=== PATIENT | female | born 1995 | race Caucasian/White ===

== ENCOUNTER 2023-11-17 09:06 | Emergency (ER) | payer OTHER, SELFPAY ==
[2023-11-17 09:19] VITALS: BP 152/94; PULSE 84; RESP 16; TEMP 36.8; O2SAT 100
--- NOTE | 2023-11-17 09:22 | ED.URI ---
HPI - URI/Sore Throat General Chief Complaint: Upper Respiratory Infection Stated Complaint: Sinus/Cough Source: patient and RN notes reviewed Mode of arrival: ambulatory Limitations: no limitations History of Present Illness HPI Narrative: 28-year-old female presented for persistent cough and nasal congestion for over 1 week. She states she was exposed to covid a few days prior to symptom onset. Pt quarantined for covid without testing positive, but states her sister had the same symptoms and tested positive. Endorses cough is getting worse, productive of green sputum, and feels like it is hard to take a full deep breath at times. Denies n/v/d/f/c. Taking Benadryl and Eastern remedies from mother in law. MD elicited complaint: cough Related Data Allergies Allergy/AdvReac Type Severity Reaction Status Date / Time No Known Allergies Allergy Verified 11/17/23 09:10 Review of Systems Review of Systems: CONSTITUTIONAL: Denies malaise, chills, sweats, fever EYES: Denies visual changes, redness, or discharge ENT: Reports rhinorrhea, congestion, denies otalgia, sore throat CARDIOVASCULAR: Denies chest pain, palpitations, edema RESPIRATORY: Reports cough, post nasal drainage. Denies dyspnea GASTROINTESTINAL: Denies abdominal pain, nausea, vomiting, diarrhea SKIN: Denies rash or itching MUSCULOSKELETAL: denies myalgia NEUROLOGIC: Denies headache [facility] Past Medical History Medical History (Updated 11/17/23 @ 09:36 by Kyleigh Soriano, ROSITA) No pertinent past medical history Exam Narrative: GENERAL: well-appearing EYES: PERRLA, conjunctivae clear ENT: Mucous membranes moist. TMs pearly edwards with dull light reflex bilaterally; no tragal tenderness. NECK: Supple. No lymphadenopathy CHEST: Clear to auscultation, breath sounds equal. No wheezing, rhonchi, rales, or stridor. No respiratory distress, speaks in full sentences. 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 HEART: Regular rate and rhythm. No murmur heard. SKIN: Warm, dry, no rash. NEURO: Alert and oriented x3. PSYCH: Normal mood and affect Course Course Emergency Course: Patient is aware of diagnosis, understands and agrees to treatment plan. Anticipatory guidance given. Patient agrees to follow-up as directed and is aware of reasons to seek care at the emergency department. Portions of this record may have been created with voice recognition software Level of Care: Express Care Visit Vital Signs Vital signs: Vital Signs Temperature 98.2 F 11/17/23 09:19 Pulse Rate 84 11/17/23 09:19 Respiratory Rate 16 11/17/23 09:19 Blood Pressure 152/94 H 11/17/23 09:19 Pulse Oximetry 100 11/17/23 09:19 Oxygen Delivery Room Air 11/17/23 09:19 Temperature 98.2 F 11/17/23 09:19 Pulse Rate 84 11/17/23 09:19 Respiratory Rate 16 11/17/23 09:19 Blood Pressure 152/94 H 11/17/23 09:19 Pulse Oximetry 100 11/17/23 09:19 Oxygen Delivery Room Air 11/17/23 09:19 reviewed MDM - URI/Sore Throat MDM Narrative Medical decision making narrative: Discussed physical exam findings. Advised supportive measures and signs/symptoms to go to the ER. Pt is appropriate for outpt treatment and f/u. Differential Diagnosis Differential diagnosis: Likely upper respiratory infection, sinusitis, viral infection and bronchitis Discharge Plan Discharge Clinical Impression: Bronchitis Patient Disposition: Home, Self-Care Condition: Stable Instructions: Antibiotic Form, Acute Bronchitis (ED) Additional Instructions: Avoid crowds until you do not have a fever and symptoms are improved Take medication as directed Recommend Flonase spray and Zyrtec (or Claritin/Julieta) over the counter Cough syrup may cause drowsiness; avoid driving or take it at night time. Tylenol 1000mg every 8 hours as needed for pain Symptomatic treatment includes: rest, fluids, and increase humidity of the air at home. Follow up with your primary care provider as needed in 1
[2023-11-17 09:24] VITALS: BP 152/94; PULSE 84; RESP 16; TEMP 36.8; O2SAT 100
== END 2023-11-17 09:35 | disposition home or self-care (01) ==
PROVIDERS: Emergency Provider Nurse Practitioner Family
DX: J40 Bronchitis, not specified as acute or chronic (principal)
CPT/HCPCS: 99213; G0463